=== PATIENT | female | born 1945 | race Two or more races ===

== ENCOUNTER → 2017-06-05 | Emergency (ER) | payer OTHER ==
[~2017-06-05] VITALS: Ht 160 cm; Wt 61.7 kg
[~2017-06-05] MED LIST: METOPROLOL SUCC25 MG; SINGULAIR5 MG; SYNTHROID100 MCG
== END | disposition home or self-care (01) ==
LOC: ER 01:19
DX: S30.0XXA Contusion of lower back and pelvis, initial encounter (principal); S90.01XA Contusion of right ankle, initial encounter; W01.198A Fall on same level from slipping, tripping and stumbling with subsequent striking against other object, initial encounter; Y93.01 Activity, walking, marching and hiking; Y92.480 Sidewalk as the place of occurrence of the external cause; Y99.8 Other external cause status